=== PATIENT | female | born 1990 | race Asian ===

== ENCOUNTER 2021-04-03 03:51 | Emergency (ER) | payer OTHER ==
[2021-04-03 04:22] LABS: BASOPHILS # (AUTO) 0.1 10^3/uL (0.0-0.1); BASOPHILS % (AUTO) 0.5 %; EOSINOPHILS # (AUTO) 0.3 10^3/uL (0.0-0.7); EOSINOPHILS % (AUTO) 2.7 %; HCT - HEMATOCRIT 35.3 % (37.0-47.0); HGB - HEMOGLOBIN 11.8 g/dL (12.0-16.0); LYMPHOCYTES # (AUTO) 2.4 10^3/uL (1.5-3.5); LYMPHOCYTES % (AUTO) 25.7 %; MEAN CORPUSCULAR HEMOGLOBIN 30.6 pg (27.0-31.0); MEAN CORPUSCULAR HGB CONC 33.4 g/dL (32.0-36.0); MEAN CORPUSCULAR VOLUME 91.7 fL (81.0-99.0); MEAN PLATELET VOLUME 8.3 fL (7.9-10.8); MONOCYTES # (AUTO) 0.6 10^3/uL (0.0-1.0); NEUTROPHILS % (AUTO) 64.7 %; PLT - PLATELET COUNT 236 10^3/uL (130-450); RED BLOOD COUNT 3.85 10^6/uL (4.20-5.40); RED CELL DISTRIBUTION WIDTH 12.1 % (12.0-15.0); WHITE BLOOD COUNT 9.3 x10^3/uL (4.8-10.8)
[2021-04-03 04:37] LABS: ALBUMIN 3.7 g/dL (3.2-5.5); ALBUMIN/GLOBULIN RATIO 1.1 (1.0-2.2); BILIRUBIN,TOTAL 0.5 mg/dL (0.2-1.0); CALCIUM 8.7 mg/dL (8.5-10.3); CREATININE 0.7 mg/dL (0.4-1.0); POTASSIUM 3.7 mmol/L (3.5-5.0); TOTAL PROTEIN 7.2 g/dL (6.7-8.2)
[2021-04-03 04:39] LABS: BILIRUBIN,URINE NEGATIVE (NEGATIVE); CLARITY,URINE BLOODY (CLEAR); GLUCOSE, URINE (UA) NEGATIVE (NEGATIVE); KETONES,URINE (UA) NEGATIVE (NEGATIVE); LEUKOCYTE ESTERASE, URINE NEGATIVE (NEGATIVE); NITRITE,URINE NEGATIVE (NEGATIVE); OCCULT BLOOD,URINE LARGE (NEGATIVE); PH,URINE 6.5 PH (5.0-7.5); PROTEIN,URINE 30 mg/dL (NEGATIVE); UROBILINOGEN,URINE 0.2 (NORMAL) E.U./dL (NORMAL)
[2021-04-03 04:45] LABS: BACTERIA,URINE None Seen /HPF (None Seen); RBC,URINE TNTC /HPF (0-5); SQUAMOUS EPITHELIAL CELL,UR NONE SEEN (<= Few); WBC,URINE 0-3 /HPF (0-5)
[2021-04-03 06:57] VITALS: BP 108/64
--- NOTE | 2021-04-03 08:40 | ED Physician Documentation ---
PD HPI FEMALE - Stated complaint Stated Complaint: ABD PX - Chief complaint Chief Complaint: General - History obtained from History obtained from: Patient - History of Present Illness Timing - onset: How many weeks ago (1) Timing - details: Gradual onset Pain level max: 4 Associated symptoms: Pelvic pain (cramping), Vaginal bleeding. 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 She was evaluated in outpatient setting in [place] 1 week ago due to vaginal spotting and she says an US was performed which demonstrated an intrauterine . She presents at this time due to increasing bleeding x past 2 days becoming associated with suprapubic cramping; tonight she passed clots and she believes she passed tissue as well Review of Systems Constitutional: denies: Fever GI: denies: Abdominal Pain (suprapubic pelvic cramping but not abdominal pain per se), Nausea, Vomiting : reports: Vaginal bleeding, Now EGKeisha (7 weeks). denies: Dysuria PD PAST MEDICAL HISTORY - Past Medical History Past Medical History: Yes Other Past Medical History: chronic hives - Past Surgical History Past Surgical History: No - Present Medications Home Medications: Ambulatory Orders Medication Instructions Recorded Confirmed No Known Home Medications 04/03/21 04/03/21 - Allergies Allergies/Adverse Reactions: Allergies Allergy/AdvReac Type Severity Reaction Status Date / Time No Known Drug Allergies Allergy Verified 04/03/21 04:01 - Social History Does the pt smoke?: No Smoking Status: Never smoker Does the pt drink ETOH?: No - Immunizations Immunizations are current?: Yes PD ED PE NORMAL - Vitals Vital signs reviewed: Yes - General General: Alert and oriented X 3, No acute distress, Well developed/nourished - Cardiac Cardiac: RRR, No murmur - Respiratory Respiratory: No respiratory distress, Clear bilaterally - Abdomen Abdomen: Soft, Non tender - Back Back: No CVA TTP Results - Vitals Vitals: Oxygen O2 Source Room air - Labs Labs: Laboratory Tests 04/03/21 04/03/21 04/03/21 04:15 04:15 04:15 WBC 9.3 RBC 3.85 L Hgb 11.8 L Hct 35.3 L MCV 91.7 MCH 30.6 MCHC 33.4 RDW 12.1 Plt Count 236 MPV 8.3 Neut # (Auto) 6.0 Lymph # (Auto) 2.4 Ross # (Auto) 0.6 Eos # (Auto) 0.3 Baso # (Auto) 0.1 Absolute Nucleated RBC 0.00 Nucleated RBC % 0.0 Sodium 136 Potassium 3.7 Chloride 104 Carbon Dioxide 25 Anion Gap 7.0 BUN 14 Creatinine 0.7 Estimated GFR (MDRD) 97 Glucose 94 Calcium 8.7 Total Bilirubin 0.5 AST 20 ALT 24 Alkaline Phosphatase 60 Total Protein 7.2 Albumin 3.7 Globulin 3.5 Albumin/Globulin Ratio 1.1 Lipase 46 HCG, Quant 7671.00 Urine Color Urine Clarity Urine pH Ur Specific [place] Urine Protein Urine Glucose (UA) Urine Ketones Urine Occult Blood Urine Nitrite Urine Bilirubin Urine Urobilinogen Ur Leukocyte Esterase Urine RBC Urine WBC Ur Squamous Epith Cells Urine Bacteria Ur Microscopic Review Urine Culture Comments Blood Type 04/03/21 04/03/21 04:26 05:50 WBC RBC Hgb Hct MCV MCH MCHC RDW Plt Count MPV Neut # (Auto) Lymph # (Auto) Ross # (Auto) Eos # (Auto) Baso # (Auto) Absolute Nucleated RBC Nucleated RBC % Sodium Potassium Chloride Carbon Dioxide Anion Gap BUN Creatinine Estimated GFR (MDRD) Glucose Calcium Total Bilirubin AST ALT Alkaline Phosphatase Total Protein Albumin Globulin Albumin/Globulin Ratio Lipase HCG, Quant Urine Color RED/BLOODY Urine Clarity BLOODY Urine pH 6.5 Ur Specific [place] 1.025 Urine Protein 30 H Urine Glucose (UA) NEGATIVE Urine Ketones NEGATIVE Urine Occult Blood LARGE H Urine Nitrite NEGATIVE Urine Bilirubin NEGATIVE Urine Urobilinogen 0.2 (NORMAL) Ur Leukocyte Esterase NEGATIVE Urine RBC TNTC H Urine WBC 0-3 Ur Squamous Epith Cells NONE SEEN Urine Bacteria None Seen Ur Microscopic Review INDICATED Urine Culture Comments NOT INDICATED Blood Type B POSITIVE - Rads (name of study) 1st trimester OB US Radiology: Prelim report reviewed, See rad report PD MEDICAL DECISION MAKING - ED course Complexity details: reviewed results, re-evaluated patient, considered differential, d/w patient ED course: US performed and preliminary reading from [employer] is no gestational sac, no yolk sac, no FHT seen. hetergenous complex contents within endo. A preliminary report from the radiologist was not made available until 3 hours after the US was competed despite ED MEDICAL OR SURGICAL INSTRUMENT MAKER contacting radiology services. By that time I had discussed the initial impression provided by US tech and discharged patient after we discussed the likely diagnosis of miscarriage; I did inform her that there appeared to be more blood, possibly tissue, to pass and to expect this. She is instructed to follow up with her senior advocate next available appointment Departure - Departure Disposition: 01 Home, Self Care Clinical Impression: Miscarriage Condition: Good Instructions: ED Miscarriage Completed Follow-Up: SERGIO NORMAN MD [Primary Care Provider] - (call to arrange for next available appointment) Discharge Date/Time: 04/03/21 08:59
--- NOTE | 2021-04-03 09:21 | Ultrasound Report ---
PROCEDURE: OB Transvaginal INDICATIONS: vaginal bleeding in 1st trimester OUTSIDE/PRIOR DATING DATA: Last menstrual period (LMP): Unknown. LMP-based estimated date of delivery (ELIAS): Unknown. First dating scan (date and location): 04/03/2021. Estimated date of delivery (ELIAS) from first dating scan: Not applicable. TECHNIQUE: Real-time scanning was performed of the fetus and maternal pelvic organs, with image documentation. COMPARISON: OB ultrasound 03/24/2021 [facility] FINDINGS: There is no visualized intrauterine or extrauterine gestational sac. There is appearance of complex e chogenicity identified within the endometrium. Minimal foci of increased vascularity is present. It i s noted on recent ultrasound, an intrauterine without heart tones was identified jelani esponding to 6 weeks 3 days gestation. A left ovarian cyst is present measuring 1.6 x 1.2 x 1.6 cm. Right ovary is unremarkable. No free flu id is identified within the lower pelvis. IMPRESSION: 1. Heterogeneous echogenicity within the endometrium without defined intrauterine gestational sac or pole, which were identified on the 03/24/2021 exam. Overall appearance is most suggestive of abo rtion. Minimal foci of increased vascularity is present within the endometrium. Small retained produc ts of conception cannot be excluded and short interval imaging follow-up is recommended. Reviewed by: Joaquina Rey MD on 04/03/2021 9:20 AM PDT Approved by: Joaquina Rey MD on 04/03/2021 9:20 AM PDT Station ID: [id number]
--- NOTE | 2021-04-03 09:21 | Ultrasound Report ---
PROCEDURE: OB First Trimester INDICATIONS: vaginal bleeding in 1st trimester OUTSIDE/PRIOR DATING DATA: Last menstrual period (LMP): Unknown. LMP-based estimated date of delivery (ELIAS): Unknown. First dating scan (date and location): 04/03/2021. Estimated date of delivery (ELIAS) from first dating scan: Not applicable. TECHNIQUE: Real-time scanning was performed of the fetus and maternal pelvic organs, with image documentation. COMPARISON: OB ultrasound 03/24/2021 [facility] FINDINGS: There is no visualized intrauterine or extrauterine gestational sac. There is appearance of complex e chogenicity identified within the endometrium. Minimal foci of increased vascularity is present. It i s noted on recent ultrasound, an intrauterine without heart tones was identified jelani esponding to 6 weeks 3 days gestation. A left ovarian cyst is present measuring 1.6 x 1.2 x 1.6 cm. Right ovary is unremarkable. No free flu id is identified within the lower pelvis. IMPRESSION: 1. Heterogeneous echogenicity within the endometrium without defined intrauterine gestational sac or pole, which were identified on the 03/24/2021 exam. Overall appearance is most suggestive of abo rtion. Minimal foci of increased vascularity is present within the endometrium. Small retained produc ts of conception cannot be excluded and short interval imaging follow-up is recommended. Reviewed by: Joaquina Rey MD on 04/03/2021 9:19 AM PDT Approved by: Joaquina Rey MD on 04/03/2021 9:19 AM PDT Station ID: [id number]
== END 2021-04-03 08:59 | disposition home or self-care (01) ==
LOC: ED 03:51
DX: O03.9 Complete or unspecified spontaneous abortion without complication (principal)
CPT/HCPCS: 36415; 80053; 81001; 81003; 83690; 84702; 85025; 86900; 86901; 87086; 99283; 99284